=== PATIENT | male | born 1995 | race African-American/Black ===

== ENCOUNTER 2018-09-12 19:03 | Emergency (ER) | payer OTHER ==
[~2018-09-12] VITALS: Ht 167.6 cm; Wt 68.0 kg
[2018-09-12 20:03] LABS: PLATELET COUNT 184 K/uL (142-355)
[2018-09-12 20:13] LABS: POTASSIUM 3.3 mmol/L (3.6-5.2)
[2018-09-13 00:52] VITALS: BP 115/69; TEMP 98.1
== END 2018-09-13 00:53 | disposition short-term general hospital (02) ==
LOC: ED 19:03
PROVIDERS: Internal Medicine
DX: K35.80 Unspecified acute appendicitis (principal); E87.6 Hypokalemia
CPT/HCPCS: 80048; 81000; 85027; 96365; 96375; 99285; J1885; J2405; J2543; Q9963